=== PATIENT | male | born 1955 | race Caucasian/White ===

== ENCOUNTER 2022-09-20 11:07 | Emergency (ER) | payer MEDICARE, SELFPAY ==
[2022-09-20] VITALS (7 sets, daily range): BP systolic 124–166; BP diastolic 85–101; PULSE 44–61; RESP 16–18; TEMP 36.7–37; O2SAT 97–99; BMI 27.8
--- NOTE | 2022-09-20 11:07 | ECG_ITS ---
APPROVED REPORT Exam: Resting ECG HR:56 bpm ECG Measurements Heart Rate 56 AXES SD 202 P 73 QRSd 97 QRS 61 QT 425 T 67 QTc 416 Conclusion SINUS BRADYCARDIA BORDERLINE ECG UNCONFIRMED REPORT Electronically signed by : Taye Gregory MD 09/22/2022 09:29:10
--- NOTE | 2022-09-20 11:20 | XR_ITS ---
FINAL REPORT CLINICAL HISTORY: dyspnea FINDINGS: No acute pulmonary opacity is present. There is no evidence of effusion or pneumothorax. Mediastinum is unremarkable. Heart size is normal. IMPRESSION: No acute abnormality. Reviewed, Interpreted and Dictated by Leonid Hermosillo MD Transcribed by Terrance Delgado Authenticated and [facility]
--- NOTE | 2022-09-20 11:20 | HMH.EDGENADL ---
Discharge Plan Disposition Patient Disposition: Home, Self-Care Activity Restrictions/Add. Instructions Additional Instructions/Restrictions: Your evaluation today for near syncope was unremarkable. Please follow-up with your plastic frame inserter for a Holter monitor and an echo if you have not had one recently. Your symptoms are most likely secondary to neurocardiogenic syncope in addition to being mildly dehydrated. Your EKG was unremarkable other than sinus bradycardia but you may discuss all these things with your plastic frame inserter and follow-up. Please return with any exertional chest discomfort or other concerns. Clinical Impressions Clinical Impression: Near syncope, Bradycardia, sinus Discharge ED Provider: Dhara Krause General Adult HPI General Chief complaint: Weakness Stated complaint: CP Time Seen by Provider: 09/20/22 11:20 History of Present Illness HPI narrative: Patient is a 46-year-old male with history of coronary disease and stroke who presents today with near syncope. States that he was driving felt well before this episode and all of a sudden felt like he was having a tunnel closing in on him and felt warm as if he was going to pass out. He did not lose consciousness has had these similar symptoms before but in the past only with coughing. Patient states he has no chest pain shortness of breath abdominal pain or focal neurologic deficits. He currently is without symptoms other than feeling anxious about what just happened. Related Data Allergies Allergy/AdvReac Type Severity Reaction Status Date / Time No Known Allergies Allergy Verified 09/20/22 11:24 [facility] Disclaimer: The information contained in this section may have been updated after the patient was seen, as this information can be updated by other users. Social History Smoking Status: Current every day smoker alcohol intake: never current occupational status: other Travel in the last 8 weeks: None ROS Obtained: Yes All systems reviewed & no additional complaints except as documented Physical Exam General General appearance: alert Respiratory Respiratory exam: Present normal lung sounds bilaterally Cardiovascular Cardiovascular exam: Present bradycardia and normal heart sounds; Absent irregular rhythm, systolic murmur or diastolic murmur Neurological Exam Neurological exam: Present alert and oriented X3 Medical Decision Making [place] Inquiry Pt receiving controlled substance: No Vital Signs: 09/20/22 11:08 09/20/22 11:16 09/20/22 11:30 Temperature 98.6 F Temperature Source Oral Pulse Rate 54 L 52 L Pulse Rate [Left Radial] 61 Respiratory Rate 17 Blood Pressure 166/101 H 160/98 H Blood Pressure [Right Arm] 166/101 H Blood Pressure Mean 120 110 Blood Pressure Mean [Right Arm] 122 02 Sat by Pulse Oximetry 99 98 98 Oxygen Delivery Method Room Air Room Air 09/20/22 12:00 09/20/22 12:30 09/20/22 13:00 Temperature Temperature Source Pulse Rate 54 L 56 L 44 L Pulse Rate [Left Radial] Respiratory Rate 18 18 Blood Pressure 142/92 H 127/89 139/85 Blood Pressure [Right Arm] Blood Pressure Mean 108 101 99 Blood Pressure Mean [Right Arm] 02 Sat by Pulse Oximetry 97 99 97 Oxygen Delivery Method Room Air Lab Data Lab results reviewed: Yes I reviewed the patient's lab results. Lab Results 09/20/22 11:17: WBC 10.4, RBC 5.35, Hgb 15.5, Hct 48.6, MCV 90.9, MCH 28.9, MCHC 31.8, RDW 13.7, Plt Count 275, MPV 8.2, Neut % (Auto) 60.5, Lymph % (Auto) 31.4, Rhea % (Auto) 4.8, Eos % (Auto) 2.8, Baso % (Auto) 0.6, Neut # (Auto) 6.3, Lymph # (Auto) 3.3, Rhea # (Auto) 0.5, Eos # (Auto) 0.3, Baso # (Auto) 0.1 09/20/22 11:17: Sodium 138, Potassium 4.6, Chloride 102, Carbon Dioxide 28, Anion Gap 12.6, BUN 15, Creatinine 0.90, Estimated Creat Clear 93, Estimated GFR 84, Est GFR ( Amer) 102, Glucose 105 H, Calcium 9.4, Magnesium 2.2, Total Bilirubin 0.9, AST 31, ALT 26, Alkaline Phosphatase 77,
[2022-09-20 11:28] LABS: Basophils # 0.1 K/mm3 (0-0.2); Basophils % 0.6 % (0.1-2.0); Eosinophils # 0.3 K/mm3 (0.0-0.4); Eosinophils % 2.8 % (0.1-12.0); Hematocrit 48.6 % (42.0-52.0); Hemoglobin 15.5 g/dL (14.1-18.0); Lymphocytes # 3.3 K/mm3 (0.7-4.5); Lymphocytes % 31.4 % (10-50); Mean Corpuscular HGB Conc 31.8 g/dL (31.8-35.4); Mean Corpuscular Hemoglobin 28.9 pg (27.0-31.2); Mean Corpuscular Volume 90.9 fl (80-94); Mean Platelet Volume 8.2 fl (7.4-10.4); Monocytes # 0.5 K/mm3 (0.1-1.0); Monocytes % 4.8 % (1.7-9.3); Neutrophils # 6.3 K/mm3 (1.8-7.8); Neutrophils % 60.5 % (37.0-80.0); Platelet Count 275 K/mm3 (142-424); Red Blood Count 5.35 M/mm3 (4.60-6.20); Red Cell Distribution Width 13.7 % (11.5-17.5); White Blood Count 10.4 K/mm3 (4.8-10.8)
[2022-09-20 11:44] LABS: Chloride 102 mmol/L (98-107); Potassium 4.6 mmoL/L (3.5-5.1); Sodium 138 mmol/L (136-145)
[2022-09-20 11:46] LABS: Blood Urea Nitrogen 15 mg/dl (9-20); Creatinine Clearance Estimated 93 mL/min (50-200); Estimated Glomerular Filt Rate 84 ml/min (>60); GFR (African American) 102 ML/MIN (>60)
[2022-09-20 11:47] LABS: Alanine Aminotransferase 26 U/L (12-78); Albumin Level 4.5 g/dl (3.5-5.0); Albumin/Globulin Ratio 1.7 (1.1-1.8); Alkaline Phosphatase 77 U/L (38-126); Anion Gap 12.6 mEq/L (5-15); Aspartate Amino Transferase 31 U/L (17-59); Bilirubin,Total 0.9 mg/dl (0.2-1.3); Calcium 9.4 mg/dl (8.4-10.2); Carbon Dioxide 28 mmol/L (22.0-30.0); Globulin 2.7 g/dL (1.3-3.2); Glucose 105 mg/dl (74-100); Magnesium 2.2 mg/dl (1.6-2.3); Total Protein,Serum 7.2 g/dl (6.3-8.2)
[2022-09-20 12:18] LABS: Thyroid Stimulating Hormone 3.87 uIU/mL (0.465-4.68)
--- NOTE | 2022-09-20 12:44 | PC.NURSE ---
checked on pt nothing needed at this time, family at bedside
== END 2022-09-20 13:53 | disposition home or self-care (01) ==
PROVIDERS: Emergency Provider Student in an Organized Health Care Education/Training Program
DX: R00.1 Bradycardia, unspecified (principal); R55 Syncope and collapse; I25.10 Atherosclerotic heart disease of native coronary artery without angina pectoris; F17.200 Nicotine dependence, unspecified, uncomplicated
CPT/HCPCS: 71045; 80053; 83735; 84443; 85025; 93005; 96360; 99285